=== PATIENT | male | born 1995 | race Caucasian/White ===

== ENCOUNTER 2024-10-23 23:14 | Emergency (ER) | payer OTHER ==
[~2024-10-23] VITALS: Ht 188 cm; Wt 91.0 kg
[2024-10-23 23:21] VITALS: TEMP 36.8
[2024-10-24] MEDS: ONDANSETRON HCL 4MG/2ML INJ IV ONE (00:32)
[2024-10-24] MEDS: MORPHINE SULFATE 4 MG/ML INJ (FOR IV/IM USE) IV ONE (00:32)
[2024-10-24 01:55] VITALS: TEMP 98.4; O2SAT 100
[2024-10-24] MEDS: PROPOFOL 200MG/20ML VIAL IV ONE (02:02)
[2024-10-24] MEDS: PROPOFOL 200MG/20ML VIAL IV NR (02:40)
[2024-10-24] MEDS ORDERED: IBUP-2029 MT (02:48)
[2024-10-24 02:56] VITALS: BP 112/73; PULSE 81; RESP 20; O2SAT 100
== END 2024-10-24 03:21 | disposition home or self-care (01) ==
LOC: ER 23:14
DX: S82.832A Other fracture of upper and lower end of left fibula, initial encounter for closed fracture (principal); W19.XXXA Unspecified fall, initial encounter; Y93.89 Activity, other specified; Y92.89 Other specified places as the place of occurrence of the external cause; Y99.8 Other external cause status
CPT/HCPCS: 73590; 73600; 27788; 99152; 99285; 73610; 96374; 96375; J2405; J2704; J2270; Z7610 ×3